=== PATIENT | male | born 1935 | race Caucasian/White ===

== ENCOUNTER 2016-10-15 06:20 | Emergency (ER) | payer OTHER, MEDICARE ==
[2016-10-15 06:45] VITALS: TEMP 97.6; BMI 26.6
--- NOTE | 2016-10-15 07:06 | PDOC ---
Attending Attestation - Resident Resident Name: Viktor Olsen - ED Attending Attestation I have performed the following: I have examined & evaluated the patient, The case was reviewed & discussed with the resident, I agree w/resident's findings & plan, Exceptions are as noted - HPI HPI: 10/15/16 07:24 The patient is an 81-year-old male, with extensive past medical history including coronary artery disease, who presents to the emergency department after he had a single episode of chest discomfort. - Physicial Exam PE: 10/15/16 07:25 He is well-appearing and in no acute distress Lungs are clear to auscultation bilaterally EKG: Normal sinus rhythm at 68, first degree AV block, left axis deviation, borderline criteria for left ventricular hypertrophy, one half millimeter J- point type elevation in V1 and V2, late R-wave progression, no ST changes - Medical Decision Making 10/15/16 07:26 He is well-appearing and in no acute distress Given his age and symptoms, I would favor placement on observation to rule out acute coronary syndrome He took aspirin today 10/15/16 07:27 10/15/16 08:55 Chest x-ray emergency Department interpretation: No acute cardiopulmonary disease Labs noted, with negative cardiac enzymes We'll place on observation for further evaluation and treatment Clinical impression: Chest pain, possible acute coronary syndrome Case discussed in detail with admitting provider including history, physical exam and ancillary studies. Admitting physician has assumed care for the patient, will follow all pending diagnostics and will complete the evaluation and treatment. 10/15/16 09:10 The patient has decided that he does not want to be admitted to the hospital, and would like to leave the hospital AGAINST MEDICAL ADVICE. I explained that leaving the hospital AGAINST MEDICAL ADVICE was dangerous and could result in worsening of his condition including heart attack permanent disability and even . I explained this using lay terms. I answered all of his questions. It is clear to me that he understands. It is clear to me that he has the capacity to make his own decisions. He agreed that he would return if he had any new, or worsening symptoms. He agreed that he would follow-up with his primary care physician today. Discharge Disposition - Patient Instructions Additional Instructions: You are leaving the hospital AGAINST MEDICAL ADVICE. Leaving the hospital AGAINST MEDICAL ADVICE is dangerous and could result in worsening of your condition, heart attack, permanent disability and even . Return to the emergency department immediately with ANY new, persistent or worsening symptoms. You MUST call and follow up with your doctor tomorrow. Please make sure your doctor reviews the results of your emergency department evaluation.
--- NOTE | 2016-10-15 07:29 | PDOC ---
History of Present Illness - General Chief Complaint: Chest Pain Stated Complaint: CHEST PAIN Time Seen by Provider: 10/15/16 07:05 History Source: Patient Exam Limitations: No Limitations - History of Present Illness Initial Comments: 81 y/o M w/PMH of HTN, HLD, DM type 2, [place] (30 years ago), presents to ER with c/ o chest pain. Chest pain started this morning when pt went to urinate at 5 am. Pain was located across bottom of chest wall and 6/10 with no radiation. Pt felt as if it was a strain since he was moving around his 's 100 pound scooter last night and felt a slight strain last night. He denies any radiation to arms, jaw, back, abdomen, nausea, vomiting, diaphoresis, squeezing feeling, chest pressure, trauma to the area. Pt took nitro this AM 20-30 min after pain started which provided relief. He also then took 4 aspirin in case he was having an [place]. At this time pain is 1/10 and only felt with deep inspiration. Pt denies visual changes, throat swelling, throat pain, abd pain, change in bowel movements, blood in stool, dysuria, peripheral swelling. PCP: Dr. Howard Past History - Past Medical History Allergies/Adverse Reactions: Allergies Allergy/AdvReac Type Severity Reaction Status Date / Time No Known Allergies Allergy Verified 10/15/16 06:42 Home Medications: Ambulatory Orders Aspirin [ASA -] 81 mg PO DAILY 03/18/16 Bicalutamide [Casodex -] 50 mg PO DAILY 03/18/16 Lisinopril 5 mg PO DAILY 03/18/16 Metformin HCl 500 mg PO BID 03/18/16 Simvastatin [Zocor -] 20 mg PO HS 03/18/16 Cancer: Yes (prostate) Diabetes: Yes HTN: Yes Hypercholesterolemia: Yes - Immunization History Immunization Up to Date: Yes - Psycho/Social/Smoking Cessation Hx Suicidal Ideation: No Smoking History: Never smoked Have you smoked in the past 12 months: No Information on smoking cessation initiated: No Hx Alcohol Use: No Drug/Substance Use Hx: No Review of Systems - Review of Systems Able to Perform ROS?: Yes Comments:: CONSTITUTIONAL: Absent: fever, chills, diaphoresis, generalized weakness HEENT: Absent: throat pain, throat swelling, difficulty swallowing, mouth swelling, visual Changes CARDIOVASCULAR: +chest pain Absent: syncope, palpitations, irregular heart rate, lightheadedness, peripheral edema RESPIRATORY: Absent: cough, shortness of breath, dyspnea with exertion GASTROINTESTINAL:Absent: abdominal pain, abdominal distension, nausea, vomiting , diarrhea, constipation, melena, hematochezia GENITOURINARY: Absent: dysuria, flank pain MUSCULOSKELETAL: Absent: myalgia, arthralgia, joint swelling NEUROLOGIC: Absent: headache, focal weakness or paresthesias, dizziness, unsteady gait PSYCHIATRIC: Absent: anxiety, depression, suicidal or homicidal ideation, hallucinations *Physical Exam - Vital Signs Last Vital Signs Temp Pulse Resp BP Pulse Ox 97.6 F 68 14 111/66 95 10/15/16 06:42 10/15/16 06:42 10/15/16 06:42 10/15/16 06:42 10/15/16 06:42 - Physical Exam Comments: GENERAL: Well developed, well nourished. Awake and alert. No acute distress. HEENT: Normocephalic, atraumatic. EOMI. No conjunctival pallor. Sclera are non- icteric. Moist mucous membranes. NECK: Supple. Full ROM. CARDIOVASCULAR: Distant heart sounds. Regular rate and rhythm. No murmurs auscultated. PULMONARY: Diminished breath sounds. No evidence of respiratory distress. Lungs clear to auscultation bilaterally. No wheezing, rales or rhonchi. ABDOMINAL: Soft. Non-tender. Non-distended. No rebound or guarding. No organomegaly. Normoactive bowel sounds. MUSCULOSKELETAL: Normal range of motion at all joints. No bony deformities or tenderness. EXTREMITIES: No cyanosis. No calf tenderness. SKIN: Warm and dry. Normal capillary refill. No rashes. No jaundice. NEUROLOGICAL: Alert, awake, appropriate. Cranial nerves 2-12 grossly intact. Normal speech. PSYCHIATRIC: Cooperative. Good eye contact. Appropriate mood and affect. Heart Score/ECG Review - ECG Intrepretation Comment:: Sinus rhythm @ 69 bpm 1st degree AV block - NV interval 240 ms Left axis deviation. No ST changes noted. ED Treatment Course - LABORATORY CBC & Chemistry Diagram: 10/15/16 07:34 10/15/16 07:34 Medical Decision Making - Medical Decision Making 10/15/16 07:26 Ordered EKG, cardiac profile, CBCD, CMP, CXR Will likely need obs tele as pain subsided with nitro use to r/o ACS 10/15/16 08:49 Initial troponin negative at <0.02. No electrolyte abnormalities. Cr 1.5 ( baseline). WBC 10.9 Will continue to monitor. 10/15/16 08:51 CXR: no evidence of active pulmonary process. 10/15/16 09:00 Pt strongly feels that it is a muscle strain and would like to sign out AMA. He states he moved a "103 pound scooter" which is the cause of his pain. Explained to patient in great detail that it is imperative he stay in the hospital for further cardiac work up with blood work and under observation in tele. The risks of signing out AMA were explained in lay terms including worsening of current condition, heart attack, permanent disability. Pt understood the risks involved in leaving AMA and was advised to come back to the ER if symptoms worsen or remain. All of pt's questions were answered. *DC/Admit/Observation/Transfer Diagnosis at time of Disposition: Chest pain - Discharge Dispostion Disposition: AGAINST MEDICAL ADVICE - Patient Instructions Printed Discharge Instructions: DI for Atypical Chest Pain, DI for Chest Pain Additional Instructions: You must follow up with your primary care doctor. Please come back to the ER if your symptoms persist or worsen.
[2016-10-15 08:12] LABS: INR 0.97 (0.82-1.09); PROTHROMBIN TIME (PATIENT) 10.7 SEC (9.98-11.88)
[2016-10-15 08:33] LABS: BASOPHIL 0.7 % (0-2.0); EOSINOPHIL 3.8 % (0-4.5); MCH 28.7 pg (25.7-33.7); MCHC 32.2 g/dl (32.0-35.9); MEAN CELL VOLUME 89.3 fl (80-96); MEAN PLT VOLUME 8.3 fl (7.5-11.1); NEUTROPHILS 71.3 % (42.8-82.8); PLATELET COUNT 449 K/MM3 (134-434); RDW 14.7 % (11.9-15.9); WHITE BLOOD COUNT 10.9 K/mm3 (4.0-10.0)
[2016-10-15 08:36] LABS: ALBUMIN 3.3 g/dl (3.4-5.0); ANION GAP 13 (8-16); BILIRUBIN,TOTAL 0.4 mg/dL (0.2-1.0); CALCIUM 9.5 mg/dL (8.5-10.1); CO2 25 mmol/L (21-32); COCKROFT - GAULT 43.09; CREATININE 1.5 mg/dL (0.7-1.3); GLUCOSE,RANDOM 90 mg/dL (74-106); MAGNESIUM 1.9 mg/dL (1.8-2.4); SGOT/AST 20 U/L (15-37); SGPT/ALT 25 U/L (12-78); TOT PROT 6.1 g/dl (6.4-8.2)
[2016-10-15 08:40] LABS: ALK PHOS 115 U/L (45-117); TROPONIN I < 0.02 ng/ml (0.00-0.05)
[2016-10-15 09:51] VITALS: BP 137/60; PULSE 70
--- NOTE | 2016-10-15 13:48 | EKG ---
Test Reason : Blood Pressure : / mmHG Vent. Rate : 069 BPM Atrial Rate : 069 BPM P-R Int : 240 ms QRS Dur : 120 ms QT Int : 426 ms P-R-T Axes : 048 -32 060 degrees QTc Int : 456 ms SINUS RHYTHM WITH 1ST DEGREE A-V BLOCK LEFT AXIS DEVIATION LEFT VENTRICULAR HYPERTROPHY WITH QRS WIDENING ABNORMAL ECG WHEN COMPARED WITH ECG OF 18-MAR-2016 12:17, NO SIGNIFICANT CHANGE WAS FOUND Confirmed by STEW VALERO MD ([id number]) on 10/15/2016 1:47:26 PM Referred By: Confirmed By:STEW VALERO MD
== END 2016-10-15 08:00 | disposition left against medical advice (07) ==
LOC: JER 06:20
DX: R07.89 Other chest pain (principal); I25.10 Atherosclerotic heart disease of native coronary artery without angina pectoris; I10 Essential (primary) hypertension; I25.2 Old myocardial infarction; E11.9 Type 2 diabetes mellitus without complications; Z79.84 Long term (current) use of oral hypoglycemic drugs; E78.5 Hyperlipidemia, unspecified; E78.00 Pure hypercholesterolemia, unspecified; Z85.46 Personal history of malignant neoplasm of prostate
CPT/HCPCS: 36415; 71010-TC; 80053; 82550; 83735; 84484; 85025; 85610; 93005; 93010; 99282-25

== ENCOUNTER 2020-08-02 09:47 | Inpatient (IN) | payer OTHER, MEDICARE ==
[2020-08-02] MEDS ORDERED: ACETAMINOPHEN 325 MG TABLET (FP) PO ONE (10:54)
[2020-08-02] MEDS ORDERED: ACETAMINOPHEN 325 MG TABLET (FP) ONE (11:07)
[2020-08-02 11:34] LABS: BASO % 0.5 % (0-2.0); EOS % 4.9 % (0-4.5); HEMATOCRIT 40.2 % (35.4-49); HEMOGLOBIN 13.2 GM/dL (11.7-16.9); LYMPH % 9.7 % (8-40); MCH 29.7 pg (25.7-33.7); MCHC 32.9 g/dl (32.0-35.9); MEAN CELL VOLUME 90.4 fl (80-96); MONO % 8.6 % (3.8-10.2); NEUT % 76.3 % (42.8-82.8); PLATELET COUNT 440 K/MM3 (134-434); RBC 4.45 M/mm3 (4.00-5.60); RDW 15.2 % (11.9-15.9); WHITE BLOOD COUNT 13.1 K/mm3 (4.0-10.0)
[2020-08-02 11:56] LABS: CHLORIDE 108 mmol/L (98-107); POTASSIUM 4.2 mmol/L (3.5-5.1); SODIUM 140 mmol/L (136-145)
[2020-08-02 11:58] LABS: ANION GAP 9 MMOL/L (8-16); CALCIUM 9.2 mg/dL (8.5-10.1); CO2 23 mmol/L (21-32)
[2020-08-02 11:59] LABS: ALBUMIN 3.9 g/dl (3.4-5.0); BLOOD UREA NITROGEN 31.2 mg/dL (7-18); GLUCOSE,RANDOM 92 mg/dL (74-106); LIPASE 57 U/L (73-393)
[2020-08-02 12:02] LABS: CREATININE 1.5 mg/dL (0.55-1.3); SGOT/AST 20 U/L (15-37); SGPT/ALT 24 U/L (13-61)
[2020-08-02 12:03] LABS: BILIRUBIN,TOTAL 0.6 mg/dL (0.2-1); TOT PROT 6.8 g/dl (6.4-8.2)
[2020-08-02 12:05] LABS: ALK PHOS 92 U/L (45-117)
[2020-08-02 13:20] LABS: PH,URINE 5.5 (5.0-8.0); URINE APPEARANCE CLEAR; URINE BILIRUBIN NEGATIVE (NEGATIVE); URINE COLOR YELLOW; URINE GLUCOSE (UA) NEGATIVE (NEGATIVE); URINE KETONE NEGATIVE (NEGATIVE); URINE LEUK ESTERASE NEGATIVE (NEGATIVE); URINE NITRITE NEGATIVE (NEGATIVE); URINE PROTEIN NEGATIVE (NEGATIVE); URINE UROBILINOGEN 0.2 mg/dL (0.2-1.0)
[2020-08-02] MEDS ORDERED: ATORVASTATIN CA 10 MG TABLET (FP) PO SCH (22:00)
[2020-08-02] MEDS ORDERED: ATORVASTATIN CA 10 MG TABLET (FP) ONE (22:25)
[2020-08-02 23:42] VITALS: BMI 23.1
[2020-08-03 08:15] LABS: BASO % 0.5 % (0-2.0); EOS % 9.6 % (0-4.5); HEMOGLOBIN 12.1 GM/dL (11.7-16.9); LYMPH % 8.9 % (8-40); MCH 29.4 pg (25.7-33.7); MCHC 32.7 g/dl (32.0-35.9); MEAN CELL VOLUME 89.9 fl (80-96); MEAN PLT VOLUME 8.5 fl (7.5-11.1); MONO % 11.6 % (3.8-10.2); NEUT % 69.4 % (42.8-82.8); PLATELET COUNT 415 K/MM3 (134-434); RBC 4.12 M/mm3 (4.00-5.60); RDW 14.9 % (11.9-15.9); WHITE BLOOD COUNT 12.6 K/mm3 (4.0-10.0)
[2020-08-03 08:40] LABS: CHLORIDE 108 mmol/L (98-107); SODIUM 138 mmol/L (136-145)
[2020-08-03 08:44] LABS: CALCIUM 8.9 mg/dL (8.5-10.1)
[2020-08-03 08:45] LABS: ALBUMIN 3.4 g/dl (3.4-5.0); ANION GAP 6 MMOL/L (8-16); BLOOD UREA NITROGEN 27.5 mg/dL (7-18); CO2 24 mmol/L (21-32); GLUCOSE,RANDOM 88 mg/dL (74-106); MAGNESIUM 2.1 mg/dL (1.8-2.4)
[2020-08-03 08:48] LABS: CREATININE 1.3 mg/dL (0.55-1.3); PHOSPHOROUS 3.6 mg/dL (2.5-4.9); SGOT/AST 17 U/L (15-37); SGPT/ALT 22 U/L (13-61)
[2020-08-03 08:50] LABS: BILIRUBIN,TOTAL 0.6 mg/dL (0.2-1)
[2020-08-03 08:51] LABS: ALK PHOS 83 U/L (45-117)
[2020-08-03] MEDS ORDERED: ASPIRIN 81 MG CHEWABLE TABLETS PO SCH (10:00)
[2020-08-03] MEDS ORDERED: ENOXAPARIN NA (PORCINE) 40 MG/0.4 ML DISP.SYRIN SQ SCH (10:00)
[2020-08-03 15:13] VITALS: BP 153/91; PULSE 79; TEMP 97.7
[2020-08-03 15:44] LABS: CHOLESTEROL 213 mg/dL (50-200)
[2020-08-03 15:45] LABS: LDL CHOLESTEROL (ONLY SJRH) 140 mg/dL (5-100); TRIGLYCERIDES 187 mg/dL (0-150)
[2020-08-03 15:47] LABS: HDL CHOLESTEROL 38 mg/dL (40-60)
== END 2020-08-03 15:58 | disposition home or self-care (01) | DRG 313 ==
LOC: JER 09:47 → JERBED 14:16 → OBSVTOIN 17:21 → J4W 23:17
PROVIDERS: ADMIT Internal Medicine; ATTEND Internal Medicine
DX: R07.9 Chest pain, unspecified (principal); N17.9 Acute kidney failure, unspecified; I25.10 Atherosclerotic heart disease of native coronary artery without angina pectoris; E78.5 Hyperlipidemia, unspecified; E11.9 Type 2 diabetes mellitus without complications; I44.7 Left bundle-branch block, unspecified; I44.0 Atrioventricular block, first degree; N18.9 Chronic kidney disease, unspecified; D72.829 Elevated white blood cell count, unspecified
CPT/HCPCS: 36415; 71046-TC-FY; 71250-TC; 80053; 80061; 81003; 82550; 82962; 83690; 83721; 83735; 84100; 84443; 84484; 85025; 87086; 93005; 93010; 99285-25; C9803; G0378; U0003

== ENCOUNTER 2023-05-05 02:28 | Inpatient (IN) | payer OTHER, MEDICARE ==
[2023-05-05 02:39] VITALS: BMI 21.8
[2023-05-05 03:50] LABS: BASO % 0.6 % (0-2.0); EOS % 0.8 % (0-4.5); HEMATOCRIT 35.1 % (35.4-49); HEMOGLOBIN 11.6 GM/dL (11.7-16.9); LYMPH % 5.7 % (8-40); MCH 30.4 pg (25.7-33.7); MEAN PLT VOLUME 7.6 fl (7.5-11.1); MONO % 10.4 % (3.8-10.2); NEUT % 82.5 % (42.8-82.8); PLATELET COUNT 381 10^3/uL (134-434); RBC 3.82 M/mm3 (4.00-5.60); RDW 15.3 % (11.9-15.9); WHITE BLOOD COUNT 17.6 K/mm3 (4.0-10.0)
[2023-05-05 04:01] LABS: ALBUMIN 3.5 g/dl (3.4-5.0); BLOOD UREA NITROGEN 27.7 mg/dL (7-18)
[2023-05-05 04:04] LABS: CREATININE 1.4 mg/dL (0.55-1.3)
[2023-05-05 04:06] LABS: BILIRUBIN,TOTAL 0.4 mg/dL (0.2-1); TOT PROT 6.1 g/dl (6.4-8.2)
[2023-05-05 04:17] LABS: CALCIUM 8.3 mg/dL (8.5-10.1)
[2023-05-05] MEDS ORDERED: ASPIRIN 81 MG CHEWABLE TABLETS PO ONE (04:19)
[2023-05-05] MEDS ORDERED: ASPIRIN 81 MG CHEWABLE TABLETS ONE (04:26)
[2023-05-05] MEDS ORDERED: HEPARIN NA (PORCINE) 5,000 UNITS/ML 1ML VIAL IVPUSH PRN ×2 (04:33→06:15)
[2023-05-05] MEDS ORDERED: HEPARIN - 25,000 UNIT in SODIUM CHLORIDE 495 ML IV SCH (04:45)
[2023-05-05] MEDS ORDERED: HEPARIN INFUSION - 25,000 UNITS/500 ML INFUS.BAG IVPB ONE (05:00)
[2023-05-05] MEDS ORDERED: HEPARIN SOD,PORK IN 0.45% NACL 25,000 UNITS/500 ML INFUS.BAG IVPB SCH (06:00)
[2023-05-05] MEDS ORDERED: HEPARIN INFUSION - 25,000 UNITS/500 ML INFUS.BAG IVPB SCH (06:00)
[2023-05-05] MEDS ORDERED: MELATONIN 1 MG TABLET PO PRN (09:06)
[2023-05-05] MEDS ORDERED: MEMANTINE HCL 10 MG TABLET (FP) PO SCH (10:00)
[2023-05-05] MEDS ORDERED: TAMSULOSIN HCL 0.4 MG CAP PO SCH (10:00)
[2023-05-05] MEDS ORDERED: amLODIPine BESYLATE 5 MG TABLET (FP) PO SCH (10:00)
[2023-05-05] MEDS ORDERED: NITROGLYCERIN 0.4 MG/HOUR TD PATCH TD SCH (10:00)
[2023-05-05] MEDS ORDERED: ASPIRIN 81 MG CHEWABLE TABLETS PO SCH (10:00)
[2023-05-05] MEDS ORDERED: DULoxetine HCL 20 MG CAPSULE.DR PO SCH (10:00)
[2023-05-05] MEDS ORDERED: NITROGLYCERIN 25MG/D5W 250ML 25 MG/250 ML ML IVPB SCH (11:15)
[2023-05-05] MEDS ORDERED: CLOPIDOGREL BISULFATE 300 MG TABLET PO ONE (11:40)
[2023-05-05] MEDS ORDERED: METOPROLOL TARTRATE 25 MG TABLET (FP) PO ONE (13:15)
[2023-05-05 14:37] LABS: ALBUMIN 3.2 g/dl (3.4-5.0); BILIRUBIN,TOTAL 0.8 mg/dL (0.2-1); CALCIUM 8.3 mg/dL (8.5-10.1); CREATININE 1.3 mg/dL (0.55-1.3); POTASSIUM 4.2 mmol/L (3.5-5.1); TOT PROT 6.1 g/dl (6.4-8.2)
[2023-05-05 20:46] VITALS: BP 94/64
[2023-05-05 21:16] VITALS: PULSE 74; RESP 25; TEMP 77
[2023-05-05] MEDS ORDERED: ATORVASTATIN CA 80 MG TABLET (FP) PO SCH (22:00)
[2023-05-05] MEDS ORDERED: ATORVASTATIN CA 10 MG TABLET (FP) PO SCH (22:00)
[2023-05-06] MEDS ORDERED: ASPIRIN 81 MG CHEWABLE TABLETS PO SCH (10:00)
== END 2023-05-05 22:18 | disposition short-term general hospital (02) | DRG 282 ==
LOC: JER 02:28 → JERBED 05:20 → J4W 09:07 → JICU 11:38
PROVIDERS: ADMIT Internal Medicine; ATTEND Internal Medicine
DX: I21.4 Non-ST elevation (NSTEMI) myocardial infarction (principal); I12.9 Hypertensive chronic kidney disease with stage 1 through stage 4 chronic kidney disease, or unspecified chronic kidney disease; N18.9 Chronic kidney disease, unspecified; I48.91 Unspecified atrial fibrillation; I25.10 Atherosclerotic heart disease of native coronary artery without angina pectoris; E78.5 Hyperlipidemia, unspecified; N40.0 Benign prostatic hyperplasia without lower urinary tract symptoms
CPT/HCPCS: 36415; 71046-TC-FY; 80053; 80061; 83036; 83735; 84484; 85025; 85730; 87635; 93005; 93010; 93306-TC; 99291; 99292